=== PATIENT | male | born 1950 | race Caucasian/White ===

== ENCOUNTER → 2017-08-02 | Outpatient (CLI) | payer MEDICARE, OTHER ==
[~2017-08-02] MED LIST: BRILINTA90 MG PO; CRESTOR40 MG PO; HCTZ 25MG TAB25 MG PO; HCTZ 25MG25 MG PO; K-PHOS ORIGINA500 MG PO; LOPRESSOR 225 MG/TAB PO; NEXIUM 40MG40 MG PO; NEXIUM40 MG PO; NITROSTAT0.4 MG/TAB SL; PLAVIX 75MG TAB75 MG PO; PRINIVIL10 MG PO
== END ==
LOC: COL.RAD 09:25
DX: C61 Malignant neoplasm of prostate (principal); M54.5 Low back pain
CPT/HCPCS: A9503

== ENCOUNTER → 2018-01-08 | Outpatient (CLI) | payer MEDICARE, OTHER | LOC: COL.RAD 12:54 | DX: M48.061 Spinal stenosis, lumbar region without neurogenic claudication (principal); M89.8X8 Other specified disorders of bone, other site; Z98.890 Other specified postprocedural states; Z85.46 Personal history of malignant neoplasm of prostate; Z92.3 Personal history of irradiation ==

== ENCOUNTER → 2018-02-07 | Outpatient (CLI) | payer MEDICARE, OTHER | LOC: COL.RAD 09:33 | DX: C61 Malignant neoplasm of prostate (principal); M46.84 Other specified inflammatory spondylopathies, thoracic region; M13.812 Other specified arthritis, left shoulder; S22.32XD Fracture of one rib, left side, subsequent encounter for fracture with routine healing | CPT/HCPCS: A9503 ==

== ENCOUNTER → 2018-04-02 | Outpatient (CLI) | payer MEDICARE, OTHER ==
[~2018-04-02] VITALS: Ht 180.3 cm; Wt 90.5 kg
[2018-04-02] VITALS (15 sets, daily range): BP systolic 124–169; BP diastolic 77–94; PULSE 65–80
[~2018-04-02] MED LIST changes: +COLACE 100100 MG/CAP PO; +EFFIENT10 MG PO; +FERROUSAL325 MG PO; +FOLIC ACID 11 MG/TA1 PO; +GRALISE300 MG PO; +NATURAL OYSTER1 TAB PO; +VITAMIN B12 1541 TAB PO; +VITAMIN D31000 IU PO; +XTANDI40 MG PO; +ZOCOR 40MG40 MG PO
== END ==
LOC: COL.RAD 11:58
DX: C61 Malignant neoplasm of prostate (principal); C79.52 Secondary malignant neoplasm of bone marrow; I10 Essential (primary) hypertension

== ENCOUNTER → 2018-10-03 | Outpatient (CLI) | payer MEDICARE, OTHER | LOC: COL.RAD 09:01 | DX: C61 Malignant neoplasm of prostate (principal); M89.9 Disorder of bone, unspecified | CPT/HCPCS: A9503; Q9967 ==

== ENCOUNTER → 2019-01-08 | Outpatient (CLI) | payer MEDICARE, OTHER | LOC: COL.RAD 09:23 | DX: C61 Malignant neoplasm of prostate (principal); M89.9 Disorder of bone, unspecified | CPT/HCPCS: A9503 ==

== ENCOUNTER → 2019-03-30 | Outpatient (CLI) | payer MEDICARE, OTHER | LOC: COL.RAD 10:46 | DX: C61 Malignant neoplasm of prostate (principal); C79.51 Secondary malignant neoplasm of bone; R91.8 Other nonspecific abnormal finding of lung field; R50.9 Fever, unspecified; Z95.9 Presence of cardiac and vascular implant and graft, unspecified | CPT/HCPCS: Q9967 ==